=== PATIENT | male | born 1985 | race Caucasian/White ===

== ENCOUNTER 2025-08-09 11:26 | Emergency (ER) | payer SELFPAY ==
[2025-08-09 11:39] VITALS: BP 143/95; PULSE 70; RESP 16; TEMP 37.1; O2SAT 99
--- NOTE | 2025-08-09 12:04 | ED.EAR ---
HPI - Ear Problem General Chief complaint: Ear Stated complaint: EARACHE/FACIAL PAIN Time Seen by Provider: 08/09/25 11:55 Source: patient and RN notes reviewed Mode of arrival: ambulatory Limitations: no limitations History of Present Illness HPI Narrative: 40-year-old male patient presents today complaining of left ear pain radiating to the jaw and gnosticist x1 week. He has tried Tylenol and ibuprofen as well as chewing on toilet paper. Currently rates his pain 4/10. Denies muffled hearing or any recent illness. Related Data Allergies Allergy/AdvReac Type Severity Reaction Status Date / Time Penicillins Allergy Unknown Unknown Verified 08/09/25 11:40 PMFSH Comments At time of signature, I have reviewed and agree with nursing past medical, surgical, social and family history unless otherwise noted. Please see nursing chart for further information. There is no relevant family history pertinent to the presenting complaint Exam Narrative: GENERAL: Well-appearing, well-nourished, and in no acute distress. HEAD: Normocephalic, atraumatic. EYES: EOMI. No redness or drainage. Conjunctivae normal. ENT: Mucous membranes pink and moist. Nares clear. No rhinorrhea. TMs normal bilaterally. Throat normal. Uvula midline. Tenderness to the left temporomandibular joint. Full AROM of the TM joint without crepitus. Tooth 17 Is broken. NECK: Normal AROM. CHEST: No respiratory distress. EXTREMITIES: Normal range of motion. No edema. SKIN: Warm, dry, no rash. Capillary refill normal. Normal skin turgor. NEURO: No focal deficits. Alert and oriented x3. Gait steady. PSYCH: Normal affect. No signs of depression or anxiety. Course Course Level of Care: Express Care Visit Vital Signs Vital signs: Vital Signs Temperature 98.8 F 08/09/25 11:39 Pulse Rate 70 08/09/25 11:39 Respiratory Rate 16 08/09/25 11:39 Blood Pressure 143/95 H 08/09/25 11:39 Pulse Oximetry 99 08/09/25 11:39 Temperature 98.8 F 08/09/25 11:39 Pulse Rate 70 08/09/25 11:39 Respiratory Rate 16 08/09/25 11:39 Blood Pressure 143/95 H 08/09/25 11:39 Pulse Oximetry 99 08/09/25 11:39 Reviewed Medical Decision Making MDM Narrative Medical decision making narrative: 40-year-old male patient presents today complaining of left ear pain radiating to the jaw and gnosticist x1 week. He has tried Tylenol and ibuprofen as well as chewing on toilet paper. Currently rates his pain 4/10. Denies muffled hearing or any recent illness. Upon exam, tender to palpation along the left TM joint. Ear exam normal. Will treat patient with a course of diclofenac and Flexeril. Patient agrees with plan. Vital signs stable. Anticipatory guidance given. Differential Diagnosis Differential Diagnosis: Otitis media, otitis externa, mastoiditis, TM joint dysfunction, dental abscess Vital Signs Vital Signs: Vital Signs Temperature 98.8 F 08/09/25 11:39 Pulse Rate 70 08/09/25 11:39 Respiratory Rate 16 08/09/25 11:39 Blood Pressure 143/95 H 08/09/25 11:39 Pulse Oximetry 99 08/09/25 11:39 Temperature 98.8 F 08/09/25 11:39 Pulse Rate 70 08/09/25 11:39 Respiratory Rate 16 08/09/25 11:39 Blood Pressure 143/95 H 08/09/25 11:39 Pulse Oximetry 99 08/09/25 11:39 Critical Care Time Critical Care Time Critical Care Time: No Discharge Plan Discharge Clinical Impression: Temporomandibular joint (TMJ) pain Patient Disposition: Home Condition: Stable Instructions: Temporomandibular Disorder (ED) Additional Instructions: Your symptoms are likely due to pain in your TM joint. Please take the diclofenac and Flexeril as prescribed. Do not drive within 8 hours of taking the Flexeril as it can make you drowsy. Follow-up with a PCP in 1 week if symptoms are not improving, or sooner if symptoms worsen. Patient Language: [place] Prescriptions: New cyclobenzaprine 10 mg tablet 10 mg PO TID PRN (Reason: muscle spasm) Qty: 20 0RF diclofenac sodium 50 mg tablet,delayed release (DR/EC) 50 mg PO TID PRN (Reason: pain) Qty: 20 0RF Follow-up/Referrals: PHYSICIAN,VERMIN EXTERMINATOR [Primary Care Provider, Internal Medicine] Time of Disposition: 12:10
== END 2025-08-09 12:14 | disposition home or self-care (01) ==
PROVIDERS: Emergency Provider Nurse Practitioner
DX: M26.622 Arthralgia of left temporomandibular joint (principal)
CPT/HCPCS: 99203; G0463